=== PATIENT | male | born 2000 ===

== ENCOUNTER 2019-03-10 13:33 | Emergency (ER) | payer OTHER ==
[2019-03-10 13:52] VITALS: BP 154/91; PULSE 67; RESP 20; TEMP 97.3; O2SAT 98
== END 2019-03-10 14:17 | disposition home or self-care (01) ==
LOC: ED 13:33
DX: H61.23 Impacted cerumen, bilateral (principal); H60.399 Other infective otitis externa, unspecified ear
CPT/HCPCS: 99282

== ENCOUNTER 2019-04-19 20:10 | Emergency (ER) | payer OTHER ==
[2019-04-19] MEDS ORDERED: IBUPROFEN 400 MG TAB PO ONE (20:36)
[2019-04-19 20:37] VITALS: BP 165/104; PULSE 97; RESP 12; TEMP 97.3; O2SAT 97
[2019-04-19] MEDS ORDERED: IBUPROFEN 400 MG TAB ONE (20:48)
== END 2019-04-19 21:14 | disposition home or self-care (01) ==
LOC: ED 20:10
DX: S93.402A Sprain of unspecified ligament of left ankle, initial encounter (principal); W22.8XXA Striking against or struck by other objects, initial encounter
CPT/HCPCS: 73610; 99282; 99283; A9270-GY